=== PATIENT | female | born 1965 | race Caucasian/White ===

== ENCOUNTER 2018-09-13 16:27 | Inpatient (IN) ==
[2018-09-13 17:19] LABS: Basophils % 0.3 % (0.0-0.8); Hematocrit 41.4 VOL% (35.7-47.0); Hemoglobin 13.9 GM/DL (12.0-16.0); Immature Granulocytes % 0.3 %; Immature Granulocytes Absolute 0.03 #; Lymphocytes # 1.1 10*3/uL (1.4-4.0); Lymphocytes % 13.1 % (21.3-54.2); Mean Corpuscular HGB Conc 33.6 GM/DL (32-36); Mean Corpuscular Hemoglobin 33 PG (27-34); Mean Corpuscular Volume 98.1 FL (87-102); Mean Platelet Volume 9.3 FL (9.6-12.0); Monocytes # 0.6 10*3/uL (0.11-0.8); Monocytes % 6.3 % (1.7-12.7); Platelet Count 225 T/CUMM (130-400); Red Blood Count 4.22 MC/CUMM (3.8-5.5); Red Cell Distribution Width 12.7 % (9.3-17.3); White Blood Count 8.7 T/CUMM (4-12)
[2018-09-13 17:39] LABS: Calcium 7.7 MG/DL (8.5-10.1); Osmolality,Calculated 263.7 MOS/KG (273-304); Potassium 3.3 MMOL/L (3.5-5.1)
[2018-09-13] MEDS ORDERED: LEVOFLOXACIN INJ 750 MG in PREMIX 1 EACH IV STA (17:41)
[2018-09-13 17:53] LABS: Anisocytosis Slight; Lymphocytes 17 % (20-55); Segmented Neutrophils 78 % (50-85); Total Cells Counted 100
[2018-09-13 17:54] LABS: Macrocytosis Slight
[2018-09-13 17:55] LABS: Stomatocytes Few
[2018-09-13 17:56] LABS: Platelet Estimate Normal
[2018-09-13] MEDS ORDERED: ALBUTEROL 2.5 MG/3 ML NEB RESP TX PRN (17:56)
[2018-09-13] MEDS ORDERED: SODIUM CHLORIDE 0.45% 1,000 ML IV SCH (18:00)
[2018-09-13] MEDS ORDERED: ALBUTEROL 2.5 MG/3 ML NEB RESP TX SCH (19:00)
[2018-09-13] MEDS: ACETAMINOPHEN 325 MG TABLET PO PRN (19:48)
[2018-09-13] MEDS: ONDANSETRON 4 MG/2 ML VIAL IV PRN (19:52)
[2018-09-13] MEDS: BENZONATATE 100 MG CAPSULE PO PRN (21:28)
[2018-09-13] MEDS: methylPREDNISolone SOD SUC 40 MG/1 ML VIAL IV SCH (21:37)
[2018-09-13] MEDS: ENOXAPARIN 40 MG/0.4 ML SYRINGE SUBCUT SCH (21:41)
[2018-09-13] MEDS: DOCUSATE SODIUM 100 MG CAPSULE PO SCH (21:41)
[2018-09-13] MEDS: traMADol 50 MG TABLET PO PRN (22:03)
[2018-09-13] MEDS ORDERED: FUROSEMIDE 20 MG/2 ML VIAL IV ONE (22:46)
[2018-09-13] MEDS ORDERED: POTASSIUM CHLORIDE 20 MEQ TABLET PO ONE (22:47)
[2018-09-13] MEDS: SODIUM CHLORIDE 0.9% 1,000 ML IV SCH (23:57)
[2018-09-14] MEDS: clonazePAM 0.5 MG TABLET PO SCH ×3 (00:33→21:09)
[2018-09-14] MEDS: ALBUTEROL/IPRATROPIUM 3 ML NEB RESP TX SCH ×4 (01:10→19:43)
[2018-09-14 05:10] LABS: Basophils % 0.2 % (0.0-0.8); Hematocrit 40.4 VOL% (35.7-47.0); Hemoglobin 13.3 GM/DL (12.0-16.0); Immature Granulocytes % 0.5 %; Immature Granulocytes Absolute 0.03 #; Lymphocytes # 0.7 10*3/uL (1.4-4.0); Lymphocytes % 10.8 % (21.3-54.2); Mean Corpuscular HGB Conc 32.9 GM/DL (32-36); Mean Corpuscular Hemoglobin 33 PG (27-34); Mean Corpuscular Volume 99.3 FL (87-102); Monocytes # 0.2 10*3/uL (0.11-0.8); Monocytes % 2.3 % (1.7-12.7); Neutrophils # 5.5 10*3/uL (1.4-7.4); Neutrophils % 86.2 % (38.7-73.9); Platelet Count 216 T/CUMM (130-400); Red Blood Count 4.07 MC/CUMM (3.8-5.5); Red Cell Distribution Width 12.6 % (9.3-17.3); White Blood Count 6.4 T/CUMM (4-12)
[2018-09-14 05:29] LABS: Albumin 2.8 G/DL (3.4-5.0); Bilirubin,Total 0.4 MG/DL (0.2-1.0); Calcium 7.9 MG/DL (8.5-10.1); Osmolality,Calculated 276.7 MOS/KG (273-304); Potassium 3.6 MMOL/L (3.5-5.1); Total Protein 6.7 G/DL (6.4-8.3)
[2018-09-14] MEDS: methylPREDNISolone SOD SUC 40 MG/1 ML VIAL IV SCH ×3 (06:00→21:13)
[2018-09-14] MEDS: traMADol 50 MG TABLET PO PRN ×4 (06:03→21:11)
[2018-09-14] MEDS: LEVOTHYROXINE 88 MCG TABLET PO SCH (06:03)
[2018-09-14 06:14] LABS: Platelet Estimate Normal
[2018-09-14] MEDS ORDERED: FUROSEMIDE 20 MG/2 ML VIAL IV SCH (09:00)
[2018-09-14] MEDS: DOCUSATE SODIUM 100 MG CAPSULE PO SCH ×2 (09:56→21:09)
[2018-09-14] MEDS: SERTRALINE 100 MG TABLET PO SCH (09:56)
[2018-09-14] MEDS: POTASSIUM CHLORIDE 20 MEQ TABLET PO SCH (09:56)
[2018-09-14] MEDS: PANTOPRAZOLE 40 MG TABLET PO SCH (09:56)
[2018-09-14] MEDS: SODIUM CHLORIDE 0.9% 1,000 ML IV SCH (09:57)
[2018-09-14] MEDS: BENZONATATE 100 MG CAPSULE PO PRN (11:09)
[2018-09-14] MEDS ORDERED: DEXTROSE 50% 25 GM/50 ML VIAL IV PRN (12:20)
[2018-09-14] MEDS ORDERED: GLUCAGON 1 MG VIAL IM PRN (12:20)
[2018-09-14] MEDS: BENZONATATE 100 MG CAPSULE PO SCH ×2 (14:31→21:10)
[2018-09-14] MEDS: INSULIN REGULAR 100 UNIT/ML SUBCUT SCH (15:31)
[2018-09-14] MEDS: LEVOFLOXACIN INJ 500 MG in PREMIX 1 EACH IV SCH (17:04)
[2018-09-14] MEDS: BUDESONIDE 0.25 MG/2 ML NEB RESP TX SCH (19:43)
[2018-09-14] MEDS ORDERED: PHENOL 1.4% THROAT SPRAY 177 ML BOTTLE PO PRN (20:19)
[2018-09-14] MEDS: ACETAMINOPHEN 325 MG TABLET PO PRN (21:10)
[2018-09-14] MEDS: ENOXAPARIN 40 MG/0.4 ML SYRINGE SUBCUT SCH (21:13)
[2018-09-15] MEDS: ALBUTEROL/IPRATROPIUM 3 ML NEB RESP TX SCH ×4 (00:10→19:26)
[2018-09-15] MEDS: traMADol 50 MG TABLET PO PRN ×2 (00:33→21:14)
[2018-09-15] MEDS: SODIUM CHLORIDE 0.9% 1,000 ML IV SCH ×2 (04:59→15:11)
[2018-09-15] MEDS: methylPREDNISolone SOD SUC 40 MG/1 ML VIAL IV SCH ×2 (05:38→18:24)
[2018-09-15] MEDS: LEVOTHYROXINE 88 MCG TABLET PO SCH (05:39)
[2018-09-15] MEDS: BUDESONIDE 0.25 MG/2 ML NEB RESP TX SCH ×2 (07:42→19:27)
[2018-09-15] MEDS: INSULIN REGULAR 100 UNIT/ML SUBCUT SCH ×2 (08:54→16:08)
[2018-09-15] MEDS: clonazePAM 0.5 MG TABLET PO SCH ×2 (09:31→21:14)
[2018-09-15] MEDS: BENZONATATE 100 MG CAPSULE PO SCH ×4 (09:31→21:33)
[2018-09-15] MEDS: SERTRALINE 100 MG TABLET PO SCH (09:31)
[2018-09-15] MEDS: POTASSIUM CHLORIDE 20 MEQ TABLET PO SCH (09:31)
[2018-09-15] MEDS: PANTOPRAZOLE 40 MG TABLET PO SCH (09:31)
[2018-09-15] MEDS: DOCUSATE SODIUM 100 MG CAPSULE PO SCH ×3 (11:45→21:16)
[2018-09-15] MEDS ORDERED: FUROSEMIDE 20 MG/2 ML VIAL IV ONE (12:20)
[2018-09-15 13:07] LABS: Calcium 8.2 MG/DL (8.5-10.1); Osmolality,Calculated 282.3 MOS/KG (273-304); Potassium 3.3 MMOL/L (3.5-5.1)
[2018-09-15] MEDS ORDERED: POTASSIUM CHLORIDE 20 MEQ TABLET PO ONE (14:18)
[2018-09-15] MEDS: POLYVINYL ALCOHOL 1.4% OPH SOLN 15 ML BOTTLE BOTH EYES SCH ×3 (15:11→21:13)
[2018-09-15] MEDS: HYDROcodone/CHLORPHENIRAMINE ER 5 ML UDCUP PO PRN (16:01)
[2018-09-15] MEDS: LEVOFLOXACIN INJ 500 MG in PREMIX 1 EACH IV SCH (18:23)
[2018-09-15] MEDS ORDERED: BISACODYL 5 MG TABLET PO ONE (20:11)
[2018-09-15] MEDS: ACETAMINOPHEN 325 MG TABLET PO PRN (20:34)
[2018-09-15] MEDS: TEMAZEPAM 15 MG CAPSULE PO SCH (21:15)
[2018-09-15] MEDS: ENOXAPARIN 40 MG/0.4 ML SYRINGE SUBCUT SCH (21:15)
[2018-09-16] MEDS: ALBUTEROL/IPRATROPIUM 3 ML NEB RESP TX SCH ×4 (00:28→19:10)
[2018-09-16 05:43] LABS: Calcium 8.2 MG/DL (8.5-10.1); Osmolality,Calculated 279.3 MOS/KG (273-304); Potassium 3.8 MMOL/L (3.5-5.1)
[2018-09-16] MEDS: methylPREDNISolone SOD SUC 40 MG/1 ML VIAL IV SCH ×2 (06:38→18:26)
[2018-09-16] MEDS: LEVOTHYROXINE 88 MCG TABLET PO SCH (06:39)
[2018-09-16] MEDS: BUDESONIDE 0.25 MG/2 ML NEB RESP TX SCH ×2 (07:45→19:10)
[2018-09-16] MEDS: INSULIN REGULAR 100 UNIT/ML SUBCUT SCH ×2 (08:01→17:02)
[2018-09-16] MEDS: SODIUM CHLORIDE 0.9% 1,000 ML IV SCH (08:01)
[2018-09-16] MEDS ORDERED: VANCOMYCIN INJ 1,250 MG in SODIUM CHLORIDE 0.9% 250 ML IV SCH (08:30)
[2018-09-16 08:39] LABS: Basophils % 0.1 % (0.0-0.8); Hematocrit 38.1 VOL% (35.7-47.0); Hemoglobin 12.4 GM/DL (12.0-16.0); Immature Granulocytes % 0.3 %; Immature Granulocytes Absolute 0.03 #; Lymphocytes # 1.8 10*3/uL (1.4-4.0); Lymphocytes % 20.4 % (21.3-54.2); Mean Corpuscular HGB Conc 32.5 GM/DL (32-36); Mean Corpuscular Hemoglobin 33 PG (27-34); Mean Corpuscular Volume 100.8 FL (87-102); Mean Platelet Volume 10.3 FL (9.6-12.0); Monocytes # 0.4 10*3/uL (0.11-0.8); Monocytes % 4.4 % (1.7-12.7); Neutrophils # 6.5 10*3/uL (1.4-7.4); Neutrophils % 74.8 % (38.7-73.9); Platelet Count 242 T/CUMM (130-400); Red Blood Count 3.78 MC/CUMM (3.8-5.5); Red Cell Distribution Width 13.5 % (9.3-17.3); White Blood Count 8.7 T/CUMM (4-12)
[2018-09-16 09:01] LABS: Anisocytosis Slight; Band Neutrophils 11 % (0-10); Lymphocytes 13 % (20-55); Segmented Neutrophils 76 % (50-85); Total Cells Counted 100
[2018-09-16 09:02] LABS: Macrocytosis Slight; Platelet Estimate Normal
[2018-09-16] MEDS: POTASSIUM CHLORIDE 20 MEQ TABLET PO SCH (09:07)
[2018-09-16] MEDS: clonazePAM 0.5 MG TABLET PO SCH ×2 (09:07→20:58)
[2018-09-16] MEDS: PANTOPRAZOLE 40 MG TABLET PO SCH (09:07)
[2018-09-16] MEDS: DOCUSATE SODIUM 100 MG CAPSULE PO SCH ×2 (09:07→20:58)
[2018-09-16] MEDS: FUROSEMIDE 20 MG/2 ML VIAL IV SCH (09:07)
[2018-09-16] MEDS: SERTRALINE 100 MG TABLET PO SCH (09:07)
[2018-09-16] MEDS: POLYVINYL ALCOHOL 1.4% OPH SOLN 15 ML BOTTLE BOTH EYES SCH ×4 (09:08→20:58)
[2018-09-16] MEDS: BENZONATATE 100 MG CAPSULE PO SCH ×3 (09:08→20:58)
[2018-09-16] MEDS: HYDROcodone/CHLORPHENIRAMINE ER 5 ML UDCUP PO PRN ×2 (09:11→20:57)
[2018-09-16] MEDS: traMADol 50 MG TABLET PO PRN ×3 (09:12→18:27)
[2018-09-16] MEDS: VANCOMYCIN INJ 1,500 MG in SODIUM CHLORIDE 0.9% 500 ML IV SCH ×2 (09:12→20:57)
[2018-09-16] MEDS: ONDANSETRON 4 MG/2 ML VIAL IV PRN (14:21)
[2018-09-16] MEDS: LEVOFLOXACIN INJ 500 MG in PREMIX 1 EACH IV SCH (18:26)
[2018-09-16] MEDS: TEMAZEPAM 15 MG CAPSULE PO SCH (20:58)
[2018-09-16] MEDS: ENOXAPARIN 40 MG/0.4 ML SYRINGE SUBCUT SCH (20:59)
[2018-09-17] MEDS: ALBUTEROL/IPRATROPIUM 3 ML NEB RESP TX SCH ×4 (00:30→19:53)
[2018-09-17] MEDS: LEVOTHYROXINE 88 MCG TABLET PO SCH (05:08)
[2018-09-17] MEDS: methylPREDNISolone SOD SUC 40 MG/1 ML VIAL IV SCH ×2 (05:08→17:50)
[2018-09-17 05:44] LABS: Calcium 8.1 MG/DL (8.5-10.1); Osmolality,Calculated 287.8 MOS/KG (273-304); Potassium 3.4 MMOL/L (3.5-5.1)
[2018-09-17] MEDS: BUDESONIDE 0.25 MG/2 ML NEB RESP TX SCH ×2 (07:10→19:53)
[2018-09-17] MEDS: INSULIN REGULAR 100 UNIT/ML SUBCUT SCH ×2 (08:10→16:49)
[2018-09-17] MEDS: SODIUM CHLORIDE 0.9% 1,000 ML IV SCH (08:15)
[2018-09-17] MEDS: POLYVINYL ALCOHOL 1.4% OPH SOLN 15 ML BOTTLE BOTH EYES SCH ×4 (08:16→20:30)
[2018-09-17] MEDS: VANCOMYCIN INJ 1,500 MG in SODIUM CHLORIDE 0.9% 500 ML IV SCH ×2 (08:17→20:31)
[2018-09-17] MEDS: FUROSEMIDE 20 MG/2 ML VIAL IV SCH (08:18)
[2018-09-17] MEDS: clonazePAM 0.5 MG TABLET PO SCH ×2 (08:18→20:32)
[2018-09-17] MEDS: DOCUSATE SODIUM 100 MG CAPSULE PO SCH ×2 (08:18→20:32)
[2018-09-17] MEDS: traMADol 50 MG TABLET PO PRN ×3 (08:18→20:35)
[2018-09-17] MEDS: PANTOPRAZOLE 40 MG TABLET PO SCH (08:18)
[2018-09-17] MEDS: HYDROcodone/CHLORPHENIRAMINE ER 5 ML UDCUP PO PRN ×2 (08:18→20:33)
[2018-09-17] MEDS: SERTRALINE 100 MG TABLET PO SCH (08:19)
[2018-09-17] MEDS: BENZONATATE 100 MG CAPSULE PO SCH ×3 (08:20→23:04)
[2018-09-17] MEDS: POTASSIUM CHLORIDE 20 MEQ TABLET PO SCH (08:20)
[2018-09-17 14:01] LABS: Mycoplasma pneumoniae Ab Inter SEE COMMENTS; Mycoplasma pneumoniae Ab, IgG Positive (Negative); Mycoplasma pneumoniae Ab, IgM Negative (Negative)
[2018-09-17] MEDS: LEVOFLOXACIN INJ 500 MG in PREMIX 1 EACH IV SCH (17:50)
[2018-09-17] MEDS: TEMAZEPAM 15 MG CAPSULE PO SCH (20:32)
[2018-09-17] MEDS: ENOXAPARIN 40 MG/0.4 ML SYRINGE SUBCUT SCH (23:04)
[2018-09-18] MEDS: ALBUTEROL/IPRATROPIUM 3 ML NEB RESP TX SCH ×4 (00:28→19:49)
[2018-09-18 04:47] LABS: Hematocrit 32.7 VOL% (35.7-47.0); Hemoglobin 10.9 GM/DL (12.0-16.0); Immature Granulocytes % 0.8 %; Immature Granulocytes Absolute 0.04 #; Lymphocytes # 1.9 10*3/uL (1.4-4.0); Lymphocytes % 37.2 % (21.3-54.2); Mean Corpuscular HGB Conc 33.3 GM/DL (32-36); Mean Corpuscular Hemoglobin 33 PG (27-34); Mean Corpuscular Volume 98.8 FL (87-102); Mean Platelet Volume 9.8 FL (9.6-12.0); Monocytes # 0.5 10*3/uL (0.11-0.8); Monocytes % 9.9 % (1.7-12.7); Neutrophils # 2.7 10*3/uL (1.4-7.4); Neutrophils % 52.1 % (38.7-73.9); Platelet Count 214 T/CUMM (130-400); Red Blood Count 3.31 MC/CUMM (3.8-5.5); Red Cell Distribution Width 13.4 % (9.3-17.3); White Blood Count 5.1 T/CUMM (4-12)
[2018-09-18 04:57] LABS: Calcium 8.1 MG/DL (8.5-10.1); Osmolality,Calculated 281.3 MOS/KG (273-304); Potassium 2.7 MMOL/L (3.5-5.1)
[2018-09-18 05:18] LABS: Macrocytosis Slight
[2018-09-18 05:19] LABS: Platelet Estimate Normal
[2018-09-18] MEDS: LEVOTHYROXINE 88 MCG TABLET PO SCH (06:32)
[2018-09-18] MEDS: VANCOMYCIN INJ 1,500 MG in SODIUM CHLORIDE 0.9% 500 ML IV SCH ×3 (06:32→23:57)
[2018-09-18] MEDS: methylPREDNISolone SOD SUC 40 MG/1 ML VIAL IV SCH ×2 (06:32→18:06)
[2018-09-18] MEDS: HYDROcodone/CHLORPHENIRAMINE ER 5 ML UDCUP PO PRN ×2 (06:32→18:12)
[2018-09-18] MEDS: SODIUM CHLORIDE 0.9% 1,000 ML IV SCH (07:00)
[2018-09-18] MEDS ORDERED: FLUCONAZOLE 150 MG TABLET PO SCH (07:00)
[2018-09-18] MEDS: BUDESONIDE 0.25 MG/2 ML NEB RESP TX SCH ×2 (07:20→19:49)
[2018-09-18] MEDS ORDERED: LINACLOTIDE 72 MCG PO SCH (09:00)
[2018-09-18] MEDS ORDERED: LIRAGLUTIDE 0.6 MG SUBCUT SCH (09:00)
[2018-09-18] MEDS ORDERED: TOBRAMYCIN 0.3% OPH SOLN 5 ML BOTTLE BOTH EYES SCH (09:00)
[2018-09-18] MEDS ORDERED: OSELTAMIVIR 75 MG CAPSULE PO SCH (09:00)
[2018-09-18] MEDS: POTASSIUM CHLORIDE 20 MEQ TABLET PO SCH (09:09)
[2018-09-18] MEDS: MELOXICAM 7.5 MG TABLET PO SCH (09:09)
[2018-09-18] MEDS: DOCUSATE SODIUM 100 MG CAPSULE PO SCH ×2 (09:10→20:57)
[2018-09-18] MEDS: SERTRALINE 100 MG TABLET PO SCH (09:10)
[2018-09-18] MEDS: ESTRADIOL 1 MG TABLET PO SCH (09:10)
[2018-09-18] MEDS: SPIRONOLACTONE 25 MG TABLET PO SCH (09:10)
[2018-09-18] MEDS: BENZONATATE 100 MG CAPSULE PO SCH ×3 (09:10→22:39)
[2018-09-18] MEDS: INSULIN REGULAR 100 UNIT/ML SUBCUT SCH ×2 (09:11→16:38)
[2018-09-18] MEDS: clonazePAM 0.5 MG TABLET PO SCH ×2 (09:11→20:57)
[2018-09-18] MEDS: POLYVINYL ALCOHOL 1.4% OPH SOLN 15 ML BOTTLE BOTH EYES SCH ×4 (09:13→20:57)
[2018-09-18] MEDS: PANTOPRAZOLE 40 MG TABLET PO SCH (09:13)
[2018-09-18] MEDS: traMADol 50 MG TABLET PO PRN ×2 (09:20→18:12)
[2018-09-18] MEDS ORDERED: POTASSIUM CHLORIDE 20 MEQ TABLET PO ONE (10:11)
[2018-09-18] MEDS: FUROSEMIDE 20 MG/2 ML VIAL IV SCH (10:35)
[2018-09-18] MEDS: FENOFIBRATE 145 MG TABLET PO SCH (11:45)
[2018-09-18] MEDS: TEMAZEPAM 15 MG CAPSULE PO SCH (20:57)
[2018-09-18] MEDS: LEVOFLOXACIN INJ 500 MG in PREMIX 1 EACH IV SCH (20:59)
[2018-09-18] MEDS: ENOXAPARIN 40 MG/0.4 ML SYRINGE SUBCUT SCH (22:39)
[2018-09-19] MEDS: ALBUTEROL/IPRATROPIUM 3 ML NEB RESP TX SCH ×4 (01:05→19:23)
[2018-09-19] MEDS: methylPREDNISolone SOD SUC 40 MG/1 ML VIAL IV SCH ×2 (05:57→17:46)
[2018-09-19] MEDS: LEVOTHYROXINE 88 MCG TABLET PO SCH (05:59)
[2018-09-19] MEDS: BUDESONIDE 0.25 MG/2 ML NEB RESP TX SCH ×2 (08:04→19:23)
[2018-09-19] MEDS: INSULIN REGULAR 100 UNIT/ML SUBCUT SCH ×2 (08:23→16:16)
[2018-09-19] MEDS: ESTRADIOL 1 MG TABLET PO SCH (09:05)
[2018-09-19] MEDS: FENOFIBRATE 145 MG TABLET PO SCH (09:05)
[2018-09-19] MEDS: HYDROcodone/CHLORPHENIRAMINE ER 5 ML UDCUP PO PRN ×2 (09:05→20:32)
[2018-09-19] MEDS: DOCUSATE SODIUM 100 MG CAPSULE PO SCH ×2 (09:06→20:30)
[2018-09-19] MEDS: POTASSIUM CHLORIDE 20 MEQ TABLET PO SCH (09:06)
[2018-09-19] MEDS: POLYVINYL ALCOHOL 1.4% OPH SOLN 15 ML BOTTLE BOTH EYES SCH ×4 (09:06→20:32)
[2018-09-19] MEDS: PANTOPRAZOLE 40 MG TABLET PO SCH (09:06)
[2018-09-19] MEDS: MELOXICAM 7.5 MG TABLET PO SCH (09:06)
[2018-09-19] MEDS: clonazePAM 0.5 MG TABLET PO SCH ×2 (09:06→20:31)
[2018-09-19] MEDS: SPIRONOLACTONE 25 MG TABLET PO SCH (09:06)
[2018-09-19] MEDS: SERTRALINE 100 MG TABLET PO SCH (09:06)
[2018-09-19] MEDS: BENZONATATE 100 MG CAPSULE PO SCH ×4 (09:07→20:33)
[2018-09-19] MEDS: VANCOMYCIN INJ 1,500 MG in SODIUM CHLORIDE 0.9% 500 ML IV SCH ×2 (11:51→15:23)
[2018-09-19] MEDS: traMADol 50 MG TABLET PO PRN ×2 (14:00→20:31)
[2018-09-19] MEDS ORDERED: ONDANSETRON ODT 4 MG TABLET PO PRN (14:02)
[2018-09-19] MEDS: TEMAZEPAM 15 MG CAPSULE PO SCH (20:30)
[2018-09-19] MEDS: ENOXAPARIN 40 MG/0.4 ML SYRINGE SUBCUT SCH (20:33)
[2018-09-19] MEDS: LEVOFLOXACIN INJ 500 MG in PREMIX 1 EACH IV SCH (20:41)
[2018-09-20] MEDS: VANCOMYCIN INJ 1,500 MG in SODIUM CHLORIDE 0.9% 500 ML IV SCH ×2 (00:09→08:53)
[2018-09-20] MEDS: ALBUTEROL/IPRATROPIUM 3 ML NEB RESP TX SCH ×2 (00:34→07:18)
[2018-09-20 05:45] LABS: Calcium 8.8 MG/DL (8.5-10.1); Osmolality,Calculated 279.4 MOS/KG (273-304); Potassium 4.1 MMOL/L (3.5-5.1)
[2018-09-20] MEDS: methylPREDNISolone SOD SUC 40 MG/1 ML VIAL IV SCH (06:06)
[2018-09-20] MEDS: LEVOTHYROXINE 88 MCG TABLET PO SCH (06:08)
[2018-09-20] MEDS: BUDESONIDE 0.25 MG/2 ML NEB RESP TX SCH (07:18)
[2018-09-20] MEDS: INSULIN REGULAR 100 UNIT/ML SUBCUT SCH (08:48)
[2018-09-20] MEDS: SPIRONOLACTONE 25 MG TABLET PO SCH (08:50)
[2018-09-20] MEDS: DOCUSATE SODIUM 100 MG CAPSULE PO SCH (08:50)
[2018-09-20] MEDS: POTASSIUM CHLORIDE 20 MEQ TABLET PO SCH (08:51)
[2018-09-20] MEDS: FENOFIBRATE 145 MG TABLET PO SCH (08:51)
[2018-09-20] MEDS: MELOXICAM 7.5 MG TABLET PO SCH (08:51)
[2018-09-20] MEDS: ESTRADIOL 1 MG TABLET PO SCH (08:51)
[2018-09-20] MEDS: clonazePAM 0.5 MG TABLET PO SCH (08:51)
[2018-09-20] MEDS: SERTRALINE 100 MG TABLET PO SCH (08:52)
[2018-09-20] MEDS: PANTOPRAZOLE 40 MG TABLET PO SCH (08:53)
[2018-09-20] MEDS: POLYVINYL ALCOHOL 1.4% OPH SOLN 15 ML BOTTLE BOTH EYES SCH (08:53)
[2018-09-20] MEDS: BENZONATATE 100 MG CAPSULE PO SCH (08:54)
[2018-09-20] MEDS: HYDROcodone/CHLORPHENIRAMINE ER 5 ML UDCUP PO PRN (08:56)
[2018-09-20 09:59] VITALS: BP 131/60
[2018-09-23] MEDS ORDERED: ERGOCALCIFEROL 50,000 UNIT CAPSULE PO SCH (06:55)
== END 2018-09-20 12:11 | disposition home or self-care (01) | DRG 194 ==
LOC: N.ED 16:27 → N.EDINP 17:54 → N.5E 19:32
PROVIDERS: ADMIT Family Medicine; ATTEND Family Medicine

== ENCOUNTER 2021-07-07 15:01 | Observation (INO) ==
[2021-07-07] MEDS ORDERED: PROMETHAZINE 25 MG/1 ML VIAL IM PRN (15:56)
[2021-07-07] MEDS ORDERED: ONDANSETRON 4 MG/2 ML VIAL IV PRN (15:56)
[2021-07-07] MEDS ORDERED: ACETAMINOPHEN 325 MG TABLET PO PRN (15:56)
[2021-07-07 16:38] LABS: Basophils # 0.1 10*3/uL (0.0-0.2); Basophils % 0.5 % (0.0-0.8); Eosinophils # 0.2 10*3/uL (0.0-0.87); Hematocrit 41.2 VOL% (35.7-47.0); Immature Granulocytes % 0.3 %; Immature Granulocytes Absolute 0.03 #; Lymphocytes # 2.8 10*3/uL (1.4-4.0); Lymphocytes % 30.2 % (21.3-54.2); Mean Corpuscular Volume 94.7 FL (87-102); Monocytes % 8.8 % (1.7-12.7); Neutrophils % 58.2 % (38.7-73.9); Platelet Count 338 T/CUMM (130-400); Red Blood Count 4.35 MC/CUMM (3.8-5.5); Red Cell Distribution Width 12.5 % (9.3-17.3); White Blood Count 9.4 T/CUMM (4-12)
[2021-07-07 17:11] LABS: Alanine Aminotransferase 31 U/L (13-56); Albumin 3.4 G/DL (3.4-5.0); Alkaline Phosphatase 67 U/L (45-117); Aspartate Amino Transferase 11 U/L (0-37); Bilirubin,Total < 0.39 MG/DL (0.20-1.00); Blood Urea Nitrogen 13 MG/DL (7-18); Calcium 9.2 MG/DL (8.5-10.1); Carbon Dioxide 27 MMOL/L (21-32); Estimated Glom Filtration Rate 113 ML/MIN; Glucose 105 MG/DL (74-106); Osmolality,Calculated 274.7 MOS/KG (273-304); Potassium 3.8 MMOL/L (3.5-5.1); Sodium 138 MMOL/L (136-145); Total Protein 7.7 G/DL (6.4-8.2)
[2021-07-07 17:21] LABS: Atypical Lymphocytes Few; Platelet Estimate Normal; Polychromasia Few
[2021-07-07] MEDS ORDERED: MELOXICAM 7.5 MG TABLET PO PRN (17:34)
[2021-07-07] MEDS ORDERED: ALBUTEROL/IPRATROPIUM 3 ML NEB RESP TX SCH (19:00)
[2021-07-07] MEDS: LACTATED RINGERS 1,000 ML IV SCH (19:38)
[2021-07-07] MEDS ORDERED: ESTRADIOL 1 MG TABLET PO SCH (21:00)
[2021-07-07] MEDS ORDERED: clonazePAM 0.5 MG TABLET PO SCH (21:00)
[2021-07-07] MEDS ORDERED: MEDROXYPROGESTERONE 2.5 MG PO SCH (21:00)
[2021-07-07] MEDS ORDERED: SERTRALINE 50 MG TABLET PO SCH (21:00)
[2021-07-07] MEDS ORDERED: ALBUTEROL/IPRATROPIUM 3 ML NEB RESP TX PRN (21:02)
[2021-07-07] MEDS: VARENICLINE 1 MG PO SCH (21:38)
[2021-07-08] MEDS ORDERED: INDOCYANINE GREEN 25 MG VIAL IV ONE (02:00)
[2021-07-08] MEDS: LACTATED RINGERS 1,000 ML IV SCH ×3 (02:37→15:55)
[2021-07-08 05:39] LABS: Basophils % 0.5 % (0.0-0.8); Eosinophils # 0.2 10*3/uL (0.0-0.87); Eosinophils % 2.8 % (0.00-10.9); Hematocrit 36.6 VOL% (35.7-47.0); Hemoglobin 12.1 GM/DL (12.0-16.0); Immature Granulocytes % 0.4 %; Immature Granulocytes Absolute 0.03 #; Lymphocytes # 3.5 10*3/uL (1.4-4.0); Lymphocytes % 44.6 % (21.3-54.2); Mean Corpuscular HGB Conc 33.1 GM/DL (32-36); Mean Corpuscular Volume 97.3 FL (87-102); Mean Platelet Volume 10.7 FL (9.6-12.0); Monocytes % 8.8 % (1.7-12.7); Neutrophils % 42.9 % (38.7-73.9); Platelet Count 284 T/CUMM (130-400); Red Blood Count 3.76 MC/CUMM (3.8-5.5); Red Cell Distribution Width 12.7 % (9.3-17.3); White Blood Count 7.7 T/CUMM (4-12)
[2021-07-08 05:56] LABS: Albumin 2.8 G/DL (3.4-5.0); Bilirubin,Total 0.6 MG/DL (0.20-1.00); Calcium 8.9 MG/DL (8.5-10.1); Osmolality,Calculated 279.4 MOS/KG (273-304); Potassium 3.5 MMOL/L (3.5-5.1); Total Protein 6.4 G/DL (6.4-8.2)
[2021-07-08] MEDS ORDERED: TISSUE ADHESIVE 1 EACH APPLICATOR TOP ONE (06:19)
[2021-07-08] MEDS ORDERED: BUPIVACAINE MPF 0.25% 30 ML VIAL ONE (06:19)
[2021-07-08] MEDS ORDERED: LIDOCAINE 1%/EPI INJ 20 ML VIAL ONE (06:19)
[2021-07-08] MEDS ORDERED: propofoL 200 MG/20 ML VIAL IV ONE (06:33)
[2021-07-08] MEDS ORDERED: ROCURONIUM 50 MG/5 ML VIAL IV ONE (06:33)
[2021-07-08] MEDS ORDERED: DEXAMETHASONE 4 MG/1 ML VIAL ONE (06:33)
[2021-07-08] MEDS ORDERED: LIDOCAINE 2% 5 ML VIAL ONE (06:33)
[2021-07-08] MEDS ORDERED: ONDANSETRON 4 MG/2 ML VIAL ONE (06:33)
[2021-07-08] MEDS ORDERED: fentaNYL 100 MCG/2 ML VIAL ONE (07:05)
[2021-07-08] MEDS ORDERED: MIDAZOLAM 2 MG/2 ML VIAL ONE (07:05)
[2021-07-08] MEDS ORDERED: LEVOTHYROXINE 100 MCG TABLET PO SCH (07:30)
[2021-07-08] MEDS ORDERED: ePHEDrine 50 MG/ML VIAL ONE (07:37)
[2021-07-08] MEDS ORDERED: GLYCOPYRROLATE 0.4 MG/2 ML VIAL ONE ×3 (07:42→08:13)
[2021-07-08] MEDS ORDERED: SEVOFLURANE 1 UNIT/15 MINUTE INH ONE ×2 (07:42→08:13)
[2021-07-08] MEDS ORDERED: PHENYLEPHRINE 1 MG/10 ML SYRINGE IV ONE (07:42)
[2021-07-08] MEDS ORDERED: CLINDAMYCIN INJ 900 MG/50 ML PREMIX IV ONE (07:47)
[2021-07-08] MEDS ORDERED: NEOSTIGMINE 10 MG/10 ML VIAL ONE (08:02)
[2021-07-08] MEDS ORDERED: LACTATED RINGERS 1,000 ML IV ONE (08:04)
[2021-07-08] MEDS ORDERED: PROMETHAZINE INJ 25 MG in SODIUM CHLORIDE 0.9% 50 ML IV ONE (08:41)
[2021-07-08] MEDS ORDERED: PANTOPRAZOLE 40 MG TABLET PO SCH (09:00)
[2021-07-08] MEDS ORDERED: HYDROmorphone 2 MG/1 ML VIAL IV PRN (09:10)
[2021-07-08] MEDS ORDERED: SUCCINYLCHOLINE 200 MG/10 ML VIAL ONE (09:27)
[2021-07-08] MEDS: VARENICLINE 1 MG PO SCH (11:30)
[2021-07-08 16:10] VITALS: BP 124/64
== END 2021-07-08 19:15 | disposition home or self-care (01) ==
LOC: N.3E
PROVIDERS: ADMIT Surgery; ATTEND Surgery